=== PATIENT | male | born 1960 | race Caucasian/White ===

== ENCOUNTER → 2016-08-28 | Outpatient (CLI) | payer MEDICARE, OTHER ==
[~2016-08-28] MED LIST: LOPRESSOR 25 MG25 MG PO
== END ==
LOC: ECHO 11:49
DX: I35.0 Nonrheumatic aortic (valve) stenosis (principal); I70.219 Atherosclerosis of native arteries of extremities with intermittent claudication, unspecified extremity; I51.7 Cardiomegaly; I08.1 Rheumatic disorders of both mitral and tricuspid valves
CPT/HCPCS: ECHO; 93306; 93925